=== PATIENT | male | born 1985 | race Two or more races ===

== ENCOUNTER 2020-09-29 16:32 | Emergency (ER) | payer SELFPAY ==
[~2020-09-29] VITALS: Ht 175.3 cm; Wt 99.8 kg
[2020-09-29] MEDS ORDERED: HYDROcodone-ACET 5/325MG TAB PO ONE (19:00)
[2020-09-29 23:00] VITALS: BP 112/69
== END 2020-09-29 23:32 | disposition home or self-care (01) ==
LOC: ER 16:32
DX: M25.461 Effusion, right knee (principal); M17.11 Unilateral primary osteoarthritis, right knee
CPT/HCPCS: 73562; 93971